=== PATIENT | male | born 1960 | race Caucasian/White ===

== ENCOUNTER 2024-01-24 11:43 | Emergency (ER) | payer MEDICARE, OTHER ==
[~2024-01-24] VITALS: Ht 182.9 cm; Wt 86.2 kg
[2024-01-24 14:27] LABS: BASOPHILS ABSOLUTE AUTO 0.03 K/mm3 (0.00-0.23); BASOPHILS PERCENT AUTO 0 % (0-2); EOSINOPHILS ABSOLUTE AUTO 0.05 K/mm3 (0.00-0.68); EOSINOPHILS PERCENT AUTO 1 % (0-6); Hematocrit 37.7 % (37.0-53.0); IMMATURE GRAN ABSOLUTE AUTO 0.03 K/mm3 (0.00-0.10); IMMATURE GRAN PERCENT AUTO 0 % (0-1); LYMPHOCYTES ABSOLUTE AUTO 1.97 K/mm3 (0.84-5.20); LYMPHOCYTES PERCENT AUTO 21 % (21-46); MONOCYTES ABSOLUTE AUTO 0.54 K/mm3 (0.16-1.47); MONOCYTES PERCENT AUTO 6 % (4-13); Mean Corpuscular HGB 29.1 pg (26.0-34.0); Mean Corpuscular HGB Conc 31.8 g/dL (31.5-36.5); Mean Corpuscular Volume 92 fL (80-100); Mean Platelet Volume 11.4 fL (9.1-12.4); NEUTROPHILS ABSOLUTE AUTO 6.87 K/mm3 (1.96-9.15); NEUTROPHILS PERCENT AUTO 72 % (41-73); Platelet Count 304 K/mm3 (150-400); RDW Coefficient Variation 15.3 % (11.7-14.2); RDW Standard Deviation 51.3 fL (35.1-46.3); Red Blood Cell Count 4.12 M/mm3 (4.30-5.90); White Blood Cell Count 9.49 K/mm3 (4.00-11.30)
[2024-01-24 14:41] LABS: C-REACTIVE PROTEIN, EXT RANGE 2.16 mg/dL (0.000-0.300)
[2024-01-24 14:42] LABS: Albumin, Blood 3.5 g/dL (3.4-5.0); Albumin/Globulin Ratio 0.8 (0.8-1.8); Bilirubin, Total 0.5 mg/dL (0.1-1.0); Bun/Creatinine Ratio 40.9 (12.0-20.0); Calcium, Blood 9.6 mg/dL (8.5-10.1); Creatinine, Blood 0.91 mg/dL (0.60-1.20); Globulin, Blood 4.4 g/dL (2.2-4.0); Potassium, Blood 4.6 mmol/L (3.5-5.5); Total Protein, Blood 7.9 g/dL (6.4-8.2)
[2024-01-24] MEDS ORDERED: CEPH500 PO (15:08)
[2024-01-24] MEDS ORDERED: BACTRIM DS TAB1 EAC1 PO (15:08)
[2024-01-24] MEDS ORDERED: HYDR1TAB94 PO (15:08)
[2024-01-24] MEDS ORDERED: LEVOTHYROXINE150 MC9 PO (15:10)
[2024-01-24] MEDS ORDERED: GABA800 PO (15:11)
[2024-01-24] MEDS ORDERED: Insulin Isoph 70 / Reg 30 100 Unit/ML 10ML Vial SC ONE (15:40)
== END 2024-01-24 16:10 | disposition home or self-care (01) ==
LOC: ER 11:43
PROVIDERS: Physician Assistant
DX: L97.519 Non-pressure chronic ulcer of other part of right foot with unspecified severity (principal); L03.115 Cellulitis of right lower limb; E11.9 Type 2 diabetes mellitus without complications
CPT/HCPCS: 73630; 80053; 82947; 85025; 86140; 99284-25; J1815

== ENCOUNTER 2024-01-31 02:03 | Day surgery (SDC) | payer MEDICARE ==
[~2024-01-31 02:03] MED LIST: BACTRIM DS TAB1 EAC1 PO; CEPH500 PO; GABA800 PO; HYDR1TAB94 PO; LEVOTHYROXINE150 MC9 PO
== END 2024-01-31 22:59 | disposition home or self-care (01) ==
LOC: WOUND 02:03
DX: E11.621 Type 2 diabetes mellitus with foot ulcer (principal); L97.425 Non-pressure chronic ulcer of left heel and midfoot with muscle involvement without evidence of necrosis; E11.40 Type 2 diabetes mellitus with diabetic neuropathy, unspecified; Z79.4 Long term (current) use of insulin; Z87.891 Personal history of nicotine dependence
CPT/HCPCS: G0463

== ENCOUNTER 2024-02-06 01:30 | Day surgery (SDC) | payer MEDICARE ==
[2024-02-09] MEDS ORDERED: EUTHYROX150 MC1 PO ×2 (08:33)
[2024-02-09] MEDS ORDERED: INSULIN LI100 UNIT/6 SC ×2 (08:37)
[2024-02-09] MEDS ORDERED: TRESIBA FL100 UNIT/2 SC ×2 (08:38)
[2024-02-10] MEDS ORDERED: MIRALAX11914 PO ×2 (11:19)
[2024-02-10] MEDS ORDERED: ONDA4ODT MM ×2 (11:20)
[2024-02-10] MEDS ORDERED: PANT20 PO ×2 (11:21)
== END 2024-02-06 23:00 | disposition home or self-care (01) ==
LOC: WOUND 01:30
DX: E11.621 Type 2 diabetes mellitus with foot ulcer (principal); L97.425 Non-pressure chronic ulcer of left heel and midfoot with muscle involvement without evidence of necrosis; E11.51 Type 2 diabetes mellitus with diabetic peripheral angiopathy without gangrene; E11.65 Type 2 diabetes mellitus with hyperglycemia; E11.40 Type 2 diabetes mellitus with diabetic neuropathy, unspecified

== ENCOUNTER 2024-02-08 22:19 | Inpatient (IN) | payer MEDICARE ==
[~2024-02-08] VITALS: Ht 172.7 cm; Wt 83.3 kg
[2024-02-08] MEDS ORDERED: Ondansetron HCl 2 MG / ML 2ML Vial IV ONE ×2 (22:45→22:50)
[2024-02-08] MEDS ORDERED: Pantoprazole Sodium 40 MG Injection IV ONE (22:50)
[2024-02-08 23:06] LABS: BASOPHILS ABSOLUTE AUTO 0.03 K/mm3 (0.00-0.23); BASOPHILS PERCENT AUTO 0 % (0-2); EOSINOPHILS ABSOLUTE AUTO 0.01 K/mm3 (0.00-0.68); EOSINOPHILS PERCENT AUTO 0 % (0-6); Hematocrit 38.9 % (37.0-53.0); Hemoglobin 12.9 g/dL (13.5-17.5); IMMATURE GRAN ABSOLUTE AUTO 0.02 K/mm3 (0.00-0.10); IMMATURE GRAN PERCENT AUTO 0 % (0-1); LYMPHOCYTES ABSOLUTE AUTO 3.03 K/mm3 (0.84-5.20); LYMPHOCYTES PERCENT AUTO 33 % (21-46); MONOCYTES ABSOLUTE AUTO 0.74 K/mm3 (0.16-1.47); MONOCYTES PERCENT AUTO 8 % (4-13); Mean Corpuscular HGB 29.8 pg (26.0-34.0); Mean Corpuscular HGB Conc 33.2 g/dL (31.5-36.5); Mean Corpuscular Volume 90 fL (80-100); NEUTROPHILS ABSOLUTE AUTO 5.43 K/mm3 (1.96-9.15); NEUTROPHILS PERCENT AUTO 59 % (41-73); Platelet Count 366 K/mm3 (150-400); RDW Coefficient Variation 16.6 % (11.7-14.2); RDW Standard Deviation 54.3 fL (35.1-46.3); Red Blood Cell Count 4.33 M/mm3 (4.30-5.90); White Blood Cell Count 9.26 K/mm3 (4.00-11.30)
[2024-02-08 23:24] LABS: Prothrombin Time Results 10.7 Sec (9.7-11.5)
[2024-02-08 23:26] LABS: Albumin/Globulin Ratio 0.9 (0.8-1.8); Bilirubin, Total 0.5 mg/dL (0.1-1.0); Bun/Creatinine Ratio 37.5 (12.0-20.0); Calcium, Blood 10.9 mg/dL (8.5-10.1); Creatinine, Blood 1.28 mg/dL (0.60-1.20); Globulin, Blood 4.6 g/dL (2.2-4.0); Potassium, Blood 4.2 mmol/L (3.5-5.5); Total Protein, Blood 8.6 g/dL (6.4-8.2)
[2024-02-09 01:23] LABS: Source, Urine Clean Catch
[2024-02-09 01:28] LABS: Bilirubin, Urine Neg (Neg); Blood, Urine 1+ (Neg); Glucose Qualitative, Urine 4+ (Neg); Ketones, Urine 2+ (Neg); Leukocyte Esterase, Urine 1+ (Neg); Nitrite, Urine Neg (Neg); Protein, Urine 2+ (Neg); Specific Gravity, Urine 1.015 (1.003-1.022); Urobilinogen, Urine NORM (Normal)
[2024-02-09 01:36] LABS: Appearance, Urine Clear (Clear); Color, Urine Yellow (P-Yellow)
[2024-02-09 01:41] LABS: Bacteria Few /hpf; Red Blood Cells, Urine 0-2 /hpf (0-2); Squamous Epithelial Cells Not Seen /hpf (Few); White Blood Cells, Urine 25-50 /hpf (0-5)
[2024-02-09] MEDS ORDERED: Ondansetron HCl 2 MG / ML 2ML Vial IV PRN (02:10)
[2024-02-09] MEDS ORDERED: FentaNYL Citrate 50 MCG/ML 2 ML Injection IV PRN (02:10)
[2024-02-09] MEDS ORDERED: FLU VACC TS2024-25(6MOS UP)/PF 45 MCG/0.5 ML SYRINGE IM SCH (02:10)
[2024-02-09] MEDS ORDERED: NS 1,000 ML IV SCH (02:15)
[2024-02-09] MEDS ORDERED: CefTRIAXone Sodium 1,000 MG in NS 100 ML IV SCH (02:34)
[2024-02-09] MEDS ORDERED: Pantoprazole Sodium 40 MG in NS 50 ML IV SCH (02:35)
[2024-02-09 03:24] LABS: U Amphetamine Screen Not Detected; U Barbituate Screen Not Detected; U Benzodiazapine Screen Not Detected; U Buprenorphine Screen Not Detected; U Cannabinoids Screen Not Detected; U Cocaine Screen Not Detected; U Methadone Screen Not Detected; U Methamphetamine Screen Not Detected; U Opiates Screen Not Detected; U Oxycodone Screen Not Detected; U Phencyclidine Screen Not Detected
[2024-02-09 04:41] LABS: BASOPHILS ABSOLUTE AUTO 0.04 K/mm3 (0.00-0.23); BASOPHILS PERCENT AUTO 0 % (0-2); EOSINOPHILS ABSOLUTE AUTO 0.04 K/mm3 (0.00-0.68); EOSINOPHILS PERCENT AUTO 0 % (0-6); Hematocrit 33.3 % (37.0-53.0); Hemoglobin 11.1 g/dL (13.5-17.5); IMMATURE GRAN ABSOLUTE AUTO 0.01 K/mm3 (0.00-0.10); IMMATURE GRAN PERCENT AUTO 0 % (0-1); LYMPHOCYTES ABSOLUTE AUTO 2.94 K/mm3 (0.84-5.20); LYMPHOCYTES PERCENT AUTO 33 % (21-46); MONOCYTES ABSOLUTE AUTO 0.88 K/mm3 (0.16-1.47); MONOCYTES PERCENT AUTO 10 % (4-13); Mean Corpuscular HGB 29.7 pg (26.0-34.0); Mean Corpuscular HGB Conc 33.3 g/dL (31.5-36.5); Mean Corpuscular Volume 89 fL (80-100); Mean Platelet Volume 10.7 fL (9.1-12.4); NEUTROPHILS ABSOLUTE AUTO 4.99 K/mm3 (1.96-9.15); NEUTROPHILS PERCENT AUTO 56 % (41-73); Platelet Count 320 K/mm3 (150-400); RDW Coefficient Variation 16.9 % (11.7-14.2); RDW Standard Deviation 54.8 fL (35.1-46.3); Red Blood Cell Count 3.74 M/mm3 (4.30-5.90)
[2024-02-09 05:03] LABS: Influenza A, PCR NEGATIVE (NEGATIVE); Influenza B, PCR NEGATIVE (NEGATIVE); Resp Syncytial Virus, PCR NEGATIVE (NEGATIVE); SARS-Cov-2 (COVID-19) PCR, MMC NEGATIVE (NEGATIVE)
[2024-02-09 05:07] LABS: Albumin, Blood 3.3 g/dL (3.4-5.0); Albumin/Globulin Ratio 0.8 (0.8-1.8); Bilirubin, Total 0.6 mg/dL (0.1-1.0); Bun/Creatinine Ratio 39.6 (12.0-20.0); Calcium, Blood 9.4 mg/dL (8.5-10.1); Creatinine, Blood 1.11 mg/dL (0.60-1.20); Globulin, Blood 3.9 g/dL (2.2-4.0); Potassium, Blood 4.6 mmol/L (3.5-5.5); Total Protein, Blood 7.2 g/dL (6.4-8.2)
[2024-02-09] MEDS ORDERED: HYDROCODONE-AC1 EA19 PO (08:33)
[2024-02-09] MEDS ORDERED: EUTHYROX150 MC1 PO (08:33)
[2024-02-09] MEDS ORDERED: INSULIN LI100 UNIT/6 SC (08:37)
[2024-02-09] MEDS ORDERED: TRESIBA FL100 UNIT/2 SC (08:38)
[2024-02-09 09:35] VITALS: BP 143/89
[2024-02-09 09:46] LABS: Glucose, Blood 757 mg/dL (70-99)
[2024-02-09] MEDS ORDERED: Insulin Human Lispro 100 Units/ML 3ML Syringe SC ONE ×2 (10:00→23:50)
[2024-02-09 11:11] LABS: Hematocrit 34.7 % (37.0-53.0); Hemoglobin 11.2 g/dL (13.5-17.5)
[2024-02-09] MEDS ORDERED: Insulin Human Lispro 100 Units/ML 3ML Syringe SC SCH (11:30)
[2024-02-09 13:40] VITALS: BP 88/68
--- NOTE | 2024-02-09 14:09 | NUR ---
THIS RN AYDIN SHAHID REGUARDING PTS BLOOD PRESSURE OF 88/64 (73). IT IS ASYMPTOMATIC AND DENIES ANY COMPLAINTS. WILL CONTINUES NS AT 100/HR. WILL REPEAT H&H 6 HOURS AFTER LAST DRAW. NO FURTHER ORDERS AT THIS TIME.
[2024-02-09 16:35] VITALS: BP 99/70
[2024-02-09 16:44] LABS: Hematocrit 33.5 % (37.0-53.0); Hemoglobin 11.1 g/dL (13.5-17.5)
[2024-02-09] MEDS ORDERED: Polyethylene Glycol 3350 17 gm PO SCH (17:00)
[2024-02-09 17:07] LABS: Bun/Creatinine Ratio 34.5 (12.0-20.0); Calcium, Blood 9.4 mg/dL (8.5-10.1); Creatinine, Blood 1.1 mg/dL (0.60-1.20); Magnesium, Blood 2.3 mg/dL (1.6-2.4); Phosphorus, Blood 2.6 mg/dL (2.5-4.9)
--- NOTE | 2024-02-09 18:38 | NUR ---
SHIFT SUMMARY: PT ARRIVED FROM THE ED AT APPROX 0945 THIS AM. WAS ABLE TO TRANSFER FROM THE ER GURNEY TO THE HOSPITAL BED. PT A&OX4. MAKES NEEDS KNOWN TO STAFF AND FOLLOWS COMMANDS. A NEW DRESSING WAS APPLIED TO WOUND ON PTS L FOOT. PT HAS DENIED ANY CP, SOB, OR GI COMPLAINTS. NO N/V SINCE ARRIVAL TO PCU. PT HAS HAD AN ADEQUATE AMOUNT OF YELLOW URINE OUTPUT. PT HAS HAD SOME SOFT BLOOD PRESSURES THIS AFTERNOON. PROVIDER IS AWARE. NO ACUTE NEURO CHANGES. NO SIGNIFICANT EVENTS HAPPENED DURING THIS SHFT. WILL CONTINUE TO CARE FOR PT TILL THE END OF SHIFT.
[2024-02-09] MEDS ORDERED: HYDROcodone 5-APAP 325 TAB PO PRN (19:45)
[2024-02-09 20:41] VITALS: BP 124/57
[2024-02-09] MEDS ORDERED: Docusate Sodium 100 MG Cap PO SCH (21:00)
[2024-02-09] MEDS ORDERED: Sennosides 8.6 MG Tab PO SCH (21:00)
[2024-02-09 22:52] LABS: Hematocrit 30.5 % (37.0-53.0); Hemoglobin 10.1 g/dL (13.5-17.5)
[2024-02-09 23:54] VITALS: BP 111/74
[2024-02-10 04:05] VITALS: BP 92/69
[2024-02-10 04:11] VITALS: BP 157/97
[2024-02-10 04:20] LABS: Hematocrit 31.2 % (37.0-53.0); Hemoglobin 10.3 g/dL (13.5-17.5); Mean Corpuscular HGB 29.6 pg (26.0-34.0); Mean Corpuscular Volume 90 fL (80-100); Mean Platelet Volume 10.7 fL (9.1-12.4); Platelet Count 280 K/mm3 (150-400); RDW Standard Deviation 55.5 fL (35.1-46.3); Red Blood Cell Count 3.48 M/mm3 (4.30-5.90); White Blood Cell Count 9.96 K/mm3 (4.00-11.30)
[2024-02-10 04:50] LABS: Anion Gap 11 mmol/L (3-11); Blood Urea Nitrogen 31 mg/dL (8-24); CO2, Blood 24 mmol/L (21-32); Calcium, Blood 9.2 mg/dL (8.5-10.1); Chloride, Blood 107 mmol/L (98-108); Glomerular Filtration Rate 84 (60-); Glucose, Blood 116 mg/dL (70-99); Phosphorus, Blood 2.6 mg/dL (2.5-4.9); Potassium, Blood 4.1 mmol/L (3.5-5.5); Sodium, Blood 138 mmol/L (136-145)
--- NOTE | 2024-02-10 05:39 | NUR ---
SHIFT SUMMARY ASSUMED CARE OF PT AT 1900. PT A&O4, ABLE TO MAKE NEEDS KNOWN AND COOPERATIVE IN CARE. PT REQUESTED [facility] FOR HIS CHRONIC BACK PAIN AND FOOT WOUND, CALLED ME TO REQUEST. ALSO CLARIFIED ORDER FOR GLUCOSE CHECK, MD CHANGED ORDER FROM [facility] TO [facility] D/T THE MAJOR FLUCTUATION IN LEVELS T/O THE DAY. PT DENIES SOB AND CP. PT STATES HE WILL NEED TO LEAVE THE HOSPITAL AND GO BACK TO [place] BY NOON REGARDLESS IF HE GETS CLEARED BY MD TO BE D/C'd. PT'S BED IN LOWEST POSITION AND CALL LIGHT IN REACH.
[2024-02-10 07:57] VITALS: BP 123/79
[2024-02-10 11:16] VITALS: BP 122/81
[2024-02-10] MEDS ORDERED: MIRALAX11914 PO (11:19)
[2024-02-10] MEDS ORDERED: ONDA4ODT MM (11:20)
[2024-02-10] MEDS ORDERED: PANT20 PO (11:21)
--- NOTE | 2024-02-10 11:40 | NUR ---
DISCHARGE SUMMARY: PT DISCHARGED TO HOME. THIS RN PROVIDED WRITTEN AND VERBAL DC INSTRUCTIONS TO PT AND ADDRESSED ANY QUESTIONS OR CONCERNS. WAS INSTRUCTED TO COME BACK TO THE ED IF SYMPTOMS WORSEN. IV WAS REMOVED WITH CATHETER INTACT. PTS BELONGINGS WERE COLLECTED AND TAKEN HOME WITH PT. PT DENIES ANY QUESTIONS OR CONCERNS.
== END 2024-02-10 11:52 | disposition home or self-care (01) | DRG 871 ==
LOC: ER 22:19 → ERHOLD 22:20 → PCU 02-09 09:41
PROVIDERS: Emergency Medicine; Internal Medicine; ADMIT Internal Medicine
DX: A41.9 Sepsis, unspecified organism (principal); R57.1 Hypovolemic shock; N17.9 Acute kidney failure, unspecified; S22.070A Wedge compression fracture of T9-T10 vertebra, initial encounter for closed fracture; E87.20 Acidosis, unspecified; L97.425 Non-pressure chronic ulcer of left heel and midfoot with muscle involvement without evidence of necrosis; K44.9 Diaphragmatic hernia without obstruction or gangrene; K59.00 Constipation, unspecified; E03.9 Hypothyroidism, unspecified; E11.40 Type 2 diabetes mellitus with diabetic neuropathy, unspecified; E86.0 Dehydration; E83.52 Hypercalcemia; N28.1 Cyst of kidney, acquired; R82.81 Pyuria; K52.9 Noninfective gastroenteritis and colitis, unspecified; X58.XXXA Exposure to other specified factors, initial encounter; Z79.891 Long term (current) use of opiate analgesic; Z79.890 Hormone replacement therapy; Z79.899 Other long term (current) drug therapy; E11.621 Type 2 diabetes mellitus with foot ulcer; E11.51 Type 2 diabetes mellitus with diabetic peripheral angiopathy without gangrene; E11.65 Type 2 diabetes mellitus with hyperglycemia
CPT/HCPCS: 0241U; 36415; 74177; 80048; 80053; 80069; 80320; 81001; 82947; 83605; 83690; 83735; 84100; 84484; 85014; 85018; 85025; 85027; 85610; 86850; 86900; 86901; 87040; 87086; 93005; 93010; 96361; 96365; 96368; 96375; 96376; 99285-25; A9270; G0378; J0696; J2405; J2470; J7030; Q9967